=== PATIENT | female | born 1960 | race Two or more races ===

== ENCOUNTER 2018-01-21 09:51 | Inpatient (IN) | payer BC ==
[~2018-01-21] VITALS: Ht 160 cm; Wt 100.2 kg
[2018-01-21] MEDS ORDERED: MORPHINE SULF INJ 2 MG/ML SYRINGE 1ML IV ONE (10:15)
[2018-01-21] MEDS ORDERED: ONDANSETRON HCL 4 MG/2 ML VIAL IV ONE (10:15)
[2018-01-21] MEDS ORDERED: NITROGLYCERIN 0.4 MG SL TAB SL ONE (10:30)
[2018-01-21] MEDS ORDERED: METOPROLOL TARTRATE 1MG/1ML-5ML VIAL IV ONE (10:30)
[2018-01-21 11:03] LABS: Basophils # (auto) 0 uL; Basophils % (auto) 0.8 % (0.0-2.0); Eosinophils # (auto) 0.1 uL; Eosinophils % (auto) 2.8 % (0.0-7.0); Hematocrit 40.1 % (36.0-46.0); Hemoglobin 13.3 g/dL (12.2-16.2); Lymphocytes # (auto) 1.6 uL; Lymphocytes % (auto) 33.2 % (10.0-50.0); Mean Corpuscular Hemoglobin 27.6 pg (28.0-32.0); Mean Corpuscular Hgb Conc. 33.2 g/dL (32.0-36.0); Mean Corpuscular Volume 83.1 fL (80.0-100.0); Monocytes # (auto) 0.4 uL; Monocytes % (auto) 8.7 % (0.0-12.0); Neutrophils # (auto) 2.6 uL; Neutrophils % (auto) 54.5 % (37.0-80.0); Nucleated Red Blood Cells % 0.2 %; Platelet Count (auto) 234 10^3/uL (140-450); Red Blood Cells 4.83 10^6/uL (4.0-5.20); Red Cell Distribution Width 14.9 % (11.8-14.3); White Blood Cell 4.9 10^3/uL (4.4-10.8)
[2018-01-21 11:18] LABS: INR 1.02 (0.9-1.15); Partial Thromboplastin Time 23.6 sec (23.78-33.04); Prothrombin Time 10.9 sec (9.27-12.13)
[2018-01-21 11:39] LABS: Albumin 3.6 g/dL (3.4-5.0); BUN/Creatinine Ratio 13.6; Bilirubin, Total 0.7 mg/dL (0.2-1.0); Calcium 9.2 mg/dL (8.5-10.1); Magnesium 2.7 mg/dL (1.6-2.6); Potassium 4.1 mmol/L (3.5-5.1); Total Protein 7.9 g/dL (6.4-8.2)
[2018-01-21] MEDS ORDERED: ACETAMINOPHEN 500 MG TAB PO PRN (11:45)
[2018-01-21] MEDS ORDERED: TEMAZEPAM 15 MG CAP PO PRN (11:45)
[2018-01-21] MEDS ORDERED: PROMETHAZINE HCL 25 MG/ML 1ML IV PRN (11:45)
[2018-01-21] MEDS ORDERED: LORazepam 0.5 MG TAB PO PRN (11:45)
[2018-01-21] MEDS ORDERED: MORPHINE SULF INJ 2 MG/ML SYRINGE 1ML IV PRN ×2 (11:45)
[2018-01-21] MEDS ORDERED: NITROGLYCERIN 0.4 MG SL TAB SL PRN (11:45)
[2018-01-21] MEDS ORDERED: ALBUTEROL SULF 2.5 MG/0.5ML(0.5%) NEB SOLN NEB PRN (11:45)
[2018-01-21] MEDS ORDERED: HYDROcodone-ACET 5/325MG TAB PO PRN (11:45)
[2018-01-21] MEDS ORDERED: LACTULOSE 20Gm/30ML SOLN PO PRN (11:45)
[2018-01-21] MEDS ORDERED: DEXTROSE (50%) 50ML SYRG IV PRN (11:45)
[2018-01-21] MEDS ORDERED: ENOXAPARIN SOD 30 MG/0.3 ML SYRINGE SC SCH (12:30)
[2018-01-21] MEDS: NITROGLYCERIN 0.2MG/HR TOPICAL PATCH TD SCH (12:45)
[2018-01-21] MEDS: SODIUM CHLOR 0.9% PF (SALINE LOCK) 10ML VIAL/SYR IV SCH ×2 (13:10→22:15)
[2018-01-21] MEDS ORDERED: CARV6.2551 PO (14:22)
[2018-01-21] MEDS ORDERED: ALBU2TAB4 PO (14:22)
[2018-01-21] MEDS ORDERED: ATOR20TA50 PO (14:22)
[2018-01-21] MEDS ORDERED: ASCO500T11 PO (14:22)
[2018-01-21] MEDS ORDERED: SENN8.6C PO (14:22)
[2018-01-21] MEDS ORDERED: ISOS20TA56 PO (14:22)
[2018-01-21] MEDS ORDERED: FURO20TA PO (14:22)
[2018-01-21] MEDS ORDERED: MULTCAP45 PO (14:22)
[2018-01-21] MEDS ORDERED: ASP81EC PO (14:22)
[2018-01-21] MEDS ORDERED: CLOP75TA28 PO (14:22)
[2018-01-21 15:01] VITALS: BP 194/47
[2018-01-21] MEDS ORDERED: ACCU-CHEK COMFORT CURVE STRIP VI SCH (17:00)
[2018-01-21] MEDS ORDERED: InsuLIN REG 1unit/0.01ml Soln (100units/ml) SC SCH (17:00)
[2018-01-21] MEDS ORDERED: ENOXAPARIN SOD 100 MG/1 ML SYRINGE SC ONE (18:45)
[2018-01-21 20:00] VITALS: BP 126/69
[2018-01-21] MEDS: ACCU-CHEK COMFORT CURVE STRIP VI SCH ×2 (20:10→23:59)
[2018-01-21] MEDS: InsuLIN REG 1unit/0.01ml Soln (100units/ml) SC SCH ×2 (20:11→23:59)
[2018-01-21 22:00] VITALS: BP 126/69
[2018-01-21] MEDS: CARVEDILOL 3.125 MG TAB PO SCH ×2 (22:00→22:16)
[2018-01-21] MEDS: ATORVASTATIN 20 MG TAB PO SCH (22:15)
[2018-01-21] MEDS: INSULIN LANTUS (GLARGINE) 1 /0.01ml (100units/ml) SC SCH (22:16)
[2018-01-22] MEDS: InsuLIN REG 1unit/0.01ml Soln (100units/ml) SC SCH ×5 (03:59→20:00)
[2018-01-22] MEDS: ACCU-CHEK COMFORT CURVE STRIP VI SCH ×5 (03:59→20:00)
[2018-01-22 04:07] LABS: Eosinophils # (auto) 0.2 uL; Hemoglobin 11.7 g/dL (12.2-16.2); Lymphocytes # (auto) 2.7 uL; Neutrophils # (auto) 2.8 uL; White Blood Cell 6.4 10^3/uL (4.4-10.8)
[2018-01-22 04:09] LABS: Basophils # (auto) 0.1 uL; Basophils % (auto) 0.9 % (0.0-2.0); Hematocrit 36.1 % (36.0-46.0); Lymphocytes % (auto) 42.4 % (10.0-50.0); Mean Corpuscular Hemoglobin 26.9 pg (28.0-32.0); Mean Corpuscular Hgb Conc. 32.4 g/dL (32.0-36.0); Monocytes # (auto) 0.6 uL; Monocytes % (auto) 10.1 % (0.0-12.0); Neutrophils % (auto) 43.6 % (37.0-80.0); Platelet Count (auto) 206 10^3/uL (140-450); Red Blood Cells 4.35 10^6/uL (4.0-5.20); Red Cell Distribution Width 15.4 % (11.8-14.3)
[2018-01-22 04:28] LABS: Albumin 3.2 g/dL (3.4-5.0); Bilirubin, Total 0.4 mg/dL (0.2-1.0); Calcium 9.2 mg/dL (8.5-10.1); Potassium 3.6 mmol/L (3.5-5.1); Total Protein 6.9 g/dL (6.4-8.2)
[2018-01-22 05:00] VITALS: BP 113/33
[2018-01-22] MEDS: SODIUM CHLOR 0.9% PF (SALINE LOCK) 10ML VIAL/SYR IV SCH ×3 (05:59→22:20)
[2018-01-22] MEDS: INSULIN LANTUS (GLARGINE) 1 /0.01ml (100units/ml) SC SCH ×2 (06:58→22:00)
[2018-01-22 09:00] VITALS: BP 149/66
[2018-01-22] MEDS ORDERED: ENOXAPARIN SOD 40 MG/0.4 ML SYRINGE SC SCH (10:00)
[2018-01-22] MEDS: POTASSIUM CHL 20 Meq TABLET PO SCH (10:11)
[2018-01-22] MEDS: PANTOPRAZOLE 40 MG TAB PO SCH (10:11)
[2018-01-22] MEDS: ENOXAPARIN SOD 100 MG/1 ML SYRINGE SC SCH (10:11)
[2018-01-22] MEDS: ASPirin 81 mg TAB PO SCH (10:11)
[2018-01-22] MEDS: NITROGLYCERIN 0.2MG/HR TOPICAL PATCH TD SCH (10:12)
[2018-01-22] MEDS: CARVEDILOL 3.125 MG TAB PO SCH ×2 (10:13→22:19)
[2018-01-22] MEDS: ENALAPRIL MALEATE 10 MG TAB PO SCH (10:13)
[2018-01-22] MEDS: FUROSEMIDE 40 MG/4 ML VIAL IV SCH (10:14)
[2018-01-22 13:00] VITALS: BP 157/88
[2018-01-22] MEDS: CLOPIDOGREL BISULFATE 75 MG TAB PO SCH (16:39)
[2018-01-22 17:00] VITALS: BP 162/85
[2018-01-22 20:00] VITALS: BP 155/68
[2018-01-22 22:00] VITALS: BP 157/61
[2018-01-22] MEDS: ATORVASTATIN 20 MG TAB PO SCH (22:20)
[2018-01-23] MEDS: ACCU-CHEK COMFORT CURVE STRIP VI SCH ×4 (04:00→12:20)
[2018-01-23] MEDS: InsuLIN REG 1unit/0.01ml Soln (100units/ml) SC SCH ×4 (04:00→12:20)
[2018-01-23 05:00] VITALS: BP 151/65
[2018-01-23] MEDS: INSULIN LANTUS (GLARGINE) 1 /0.01ml (100units/ml) SC SCH (07:10)
[2018-01-23] MEDS: SODIUM CHLOR 0.9% PF (SALINE LOCK) 10ML VIAL/SYR IV SCH ×2 (07:31→14:24)
[2018-01-23 08:30] VITALS: BP 152/73
[2018-01-23] MEDS: NITROGLYCERIN 0.2MG/HR TOPICAL PATCH TD SCH (10:00)
[2018-01-23] MEDS: CLOPIDOGREL BISULFATE 75 MG TAB PO SCH (10:25)
[2018-01-23] MEDS: ENALAPRIL MALEATE 10 MG TAB PO SCH (10:26)
[2018-01-23] MEDS: PANTOPRAZOLE 40 MG TAB PO SCH (10:27)
[2018-01-23] MEDS: ENOXAPARIN SOD 100 MG/1 ML SYRINGE SC SCH (10:27)
[2018-01-23] MEDS: POTASSIUM CHL 20 Meq TABLET PO SCH (10:28)
[2018-01-23] MEDS: ASPirin 81 mg TAB PO SCH (10:28)
[2018-01-23] MEDS: CARVEDILOL 3.125 MG TAB PO SCH (10:29)
[2018-01-23] MEDS: FUROSEMIDE 40 MG/4 ML VIAL IV SCH (10:35)
[2018-01-23 12:30] VITALS: BP 155/56
[2018-01-23 17:00] VITALS: BP 89/51
== END 2018-01-23 18:00 | disposition short-term general hospital (02) | DRG 291 ==
LOC: ER 09:51 → EDBD 09:51 → TELE 09:52 → TELE-CENTR 13:31
PROVIDERS: ADMIT Internal Medicine; ATTEND Internal Medicine
DX: I13.0 Hypertensive heart and chronic kidney disease with heart failure and stage 1 through stage 4 chronic kidney disease, or unspecified chronic kidney disease (principal); I50.43 Acute on chronic combined systolic (congestive) and diastolic (congestive) heart failure; N18.4 Chronic kidney disease, stage 4 (severe); R07.9 Chest pain, unspecified; E11.21 Type 2 diabetes mellitus with diabetic nephropathy; E11.22 Type 2 diabetes mellitus with diabetic chronic kidney disease; E11.40 Type 2 diabetes mellitus with diabetic neuropathy, unspecified; E11.65 Type 2 diabetes mellitus with hyperglycemia; E78.5 Hyperlipidemia, unspecified; I25.10 Atherosclerotic heart disease of native coronary artery without angina pectoris; I25.2 Old myocardial infarction; Z83.3 Family history of diabetes mellitus; Z86.73 Personal history of transient ischemic attack (TIA), and cerebral infarction without residual deficits; Z86.74 Personal history of sudden cardiac arrest; Z90.49 Acquired absence of other specified parts of digestive tract; Z95.5 Presence of coronary angioplasty implant and graft; Z88.1 Allergy status to other antibiotic agents; Z88.2 Allergy status to sulfonamides; Z79.899 Other long term (current) drug therapy; Z79.82 Long term (current) use of aspirin; Z89.422 Acquired absence of other left toe(s)
CPT/HCPCS: 36415; 71045; 80053; 80061; 82550; 82962; 83036; 83735; 83880; 84443; 84484; 85025; 85379; 85610; 85652; 85730; 86141; 93005; 93306; 93886; 93970; 94761; 96372; 96374; 96375; 97163; J1815; J2405

== ENCOUNTER 2018-04-09 18:52 | Inpatient (IN) | payer BC ==
[~2018-04-09] VITALS: Ht 160 cm; Wt 92.7 kg
[~2018-04-09 18:52] MED LIST: ALBU2TAB4 PO; ASCO500T11 PO; ASP81EC PO; ATOR20TA50 PO; CARV6.2551 PO; CLOP75TA28 PO; FURO20TA PO; ISOS20TA56 PO; MULTCAP45 PO; SENN8.6C PO
[2018-04-09 19:27] LABS: Basophils # (auto) 0 uL; Basophils % (auto) 0.7 % (0.0-2.0); Eosinophils # (auto) 0.1 uL; Eosinophils % (auto) 2.4 % (0.0-7.0); Hematocrit 41.9 % (36.0-46.0); Hemoglobin 13.6 g/dL (12.2-16.2); Lymphocytes # (auto) 1.9 uL; Lymphocytes % (auto) 33.6 % (10.0-50.0); Mean Corpuscular Hemoglobin 27.5 pg (28.0-32.0); Mean Corpuscular Hgb Conc. 32.4 g/dL (32.0-36.0); Mean Corpuscular Volume 84.8 fL (80.0-100.0); Monocytes # (auto) 0.5 uL; Monocytes % (auto) 8.9 % (0.0-12.0); Neutrophils # (auto) 3.1 uL; Neutrophils % (auto) 54.4 % (37.0-80.0); Nucleated Red Blood Cells % 0.2 %; Platelet Count (auto) 212 10^3/uL (140-450); Red Blood Cells 4.94 10^6/uL (4.0-5.20); Red Cell Distribution Width 14.4 % (11.8-14.3); White Blood Cell 5.8 10^3/uL (4.4-10.8)
[2018-04-09 19:54] LABS: Albumin 1.7 g/dL (3.4-5.0); Magnesium 1.6 mg/dL (1.6-2.6)
[2018-04-09 20:02] LABS: BUN/Creatinine Ratio 22.5; Bilirubin, Total 0.2 mg/dL (0.2-1.0); Total Protein 3.8 g/dL (6.4-8.2)
[2018-04-09 20:08] LABS: Calcium 5.1 mg/dL (8.5-10.1); Potassium 2.4 mmol/L (3.5-5.1)
[2018-04-09] MEDS ORDERED: POTASSIUM CHL 20 Meq TABLET PO ONE (20:15)
[2018-04-09] MEDS ORDERED: POTASSIUM CHL 20MEQ/100ML 100 ML IV ONE (20:15)
[2018-04-09] MEDS ORDERED: CALCIUM GLUC 4.65meq/50ml D5AE 50 ML IV ONE (20:15)
[2018-04-10] VITALS (7 sets, daily range): BP systolic 126–157; BP diastolic 67–95
[2018-04-10 00:52] LABS: Urine Bacteria MOD /hpf (None Seen); Urine Blood Negative /uL (Negative); Urine Specific Gravity 1.021 (1.001-1.035); Urine WBC 46 /hpf (0 - 5)
[2018-04-10] MEDS ORDERED: cefTRIAXone 1GM/50ML D5W 50 ML IV ONE (01:30)
[2018-04-10] MEDS ORDERED: ONDANSETRON HCL 4 MG/2 ML VIAL IV PRN (02:15)
[2018-04-10] MEDS ORDERED: ALBUTEROL SULF 2.5 MG/0.5ML(0.5%) NEB SOLN NEB PRN (02:15)
[2018-04-10] MEDS ORDERED: ACETAMINOPHEN 500 MG TAB PO PRN (02:15)
[2018-04-10] MEDS ORDERED: DEXTROSE (50%) 50ML SYRG IV PRN (02:15)
[2018-04-10] MEDS ORDERED: FUROSEMIDE 20 MG TAB PO SCH ×3 (06:00→10:00)
[2018-04-10] MEDS: InsuLIN REG 1unit/0.01ml Soln (100units/ml) SC SCH ×2 (07:08→12:00)
[2018-04-10] MEDS: ACCU-CHEK COMFORT CURVE STRIP VI SCH ×2 (07:08→12:00)
[2018-04-10] MEDS: CARVEDILOL 3.125 MG TAB PO SCH ×2 (08:00→18:00)
[2018-04-10] MEDS ORDERED: CLOPIDOGREL BISULFATE 75 MG TAB PO SCH (10:00)
[2018-04-10] MEDS ORDERED: ASPirin-EC 81 mg tab PO SCH (10:00)
[2018-04-10] MEDS ORDERED: ISOSORBIDE MONONITRATE 60 MG TAB PO SCH (10:00)
[2018-04-10] MEDS: MAGNESIUM SULFATE 1GM/100ML 100 ML IV SCH ×2 (11:18→12:00)
[2018-04-10 12:01] LABS: Basophils # (auto) 0 uL; Basophils % (auto) 0.7 % (0.0-2.0); Eosinophils # (auto) 0.1 uL; Hematocrit 39.5 % (36.0-46.0); Lymphocytes # (auto) 1.8 uL; Lymphocytes % (auto) 37.1 % (10.0-50.0); Mean Corpuscular Hemoglobin 27.5 pg (28.0-32.0); Mean Corpuscular Hgb Conc. 32.9 g/dL (32.0-36.0); Mean Corpuscular Volume 83.7 fL (80.0-100.0); Monocytes # (auto) 0.4 uL; Monocytes % (auto) 8.9 % (0.0-12.0); Neutrophils # (auto) 2.5 uL; Neutrophils % (auto) 51.3 % (37.0-80.0); Platelet Count (auto) 218 10^3/uL (140-450); Red Blood Cells 4.72 10^6/uL (4.0-5.20); Red Cell Distribution Width 14.4 % (11.8-14.3); White Blood Cell 4.9 10^3/uL (4.4-10.8)
[2018-04-10 12:22] LABS: BUN/Creatinine Ratio 18.8; Calcium 9.1 mg/dL (8.5-10.1); Potassium 4.3 mmol/L (3.5-5.1)
[2018-04-10] MEDS ORDERED: ATORVASTATIN 20 MG TAB PO SCH (22:00)
[2018-04-10] MEDS ORDERED: InsuLIN REG 1unit/0.01ml Soln (100units/ml) SC SCH (22:00)
[2018-04-11] MEDS ORDERED: cefTRIAXone 1GM/50ML D5W 50 ML IV SCH (09:00)
== END 2018-04-10 18:50 | disposition home or self-care (01) | DRG 637 ==
LOC: EDBD 18:52 → ER 19:01 → TELE 19:02 → TELE-WESTW 04-10 03:20
PROVIDERS: ADMIT Nurse Practitioner Family; ATTEND Nurse Practitioner Family
DX: E11.65 Type 2 diabetes mellitus with hyperglycemia (principal); E43 Unspecified severe protein-calorie malnutrition; N39.0 Urinary tract infection, site not specified; E86.0 Dehydration; E87.6 Hypokalemia; E83.51 Hypocalcemia; I11.0 Hypertensive heart disease with heart failure; I50.9 Heart failure, unspecified; I25.2 Old myocardial infarction; E78.5 Hyperlipidemia, unspecified; E83.42 Hypomagnesemia; I25.10 Atherosclerotic heart disease of native coronary artery without angina pectoris; I70.0 Atherosclerosis of aorta; Z79.4 Long term (current) use of insulin; Z86.73 Personal history of transient ischemic attack (TIA), and cerebral infarction without residual deficits; Z79.82 Long term (current) use of aspirin; Z68.36 Body mass index [BMI] 36.0-36.9, adult; Z88.2 Allergy status to sulfonamides; Z88.8 Allergy status to other drugs, medicaments and biological substances
CPT/HCPCS: 36415; 71045; 80048; 80053; 81001; 82962; 83036; 83735; 83880; 84484; 85025; 85379; 87086; 93005; 93970; 94761; 96374; 96375; G0378; J0610; J0696; J1815; J3480